=== PATIENT | male | born 1995 | race Two or more races ===

== ENCOUNTER 2024-12-07 15:28 | Emergency (ER) | payer OTHER ==
[~2024-12-07] VITALS: Ht 165.1 cm; Wt 57.6 kg
[2024-12-07] MEDS ORDERED: ONDANSETRON HCL 2 MG/ML VIAL ONE (17:22)
[2024-12-07] MEDS ORDERED: FAMOTIDINE/PF 20 MG/2 ML VIAL ONE (17:23)
[2024-12-07] MEDS ORDERED: 0.9 % SODIUM CHLORIDE 1,000 ML IV ONE (17:30)
[2024-12-07] MEDS ORDERED: ONDANSETRON HCL 2 MG/ML VIAL IV ONE (17:30)
[2024-12-07] MEDS ORDERED: FAMOtidine 10 MG/ML (4ML VIAL) IV ONE (17:30)
[2024-12-07 18:44] LABS: BASO % 0.1 % (0.1-1.2); EOS # 0.00 (0.04-0.54); EOS % 0.0 % (0.7-7.0); LYMPH # 0.55 (1.18-3.74); LYMPH % 4.0 % (19.3-53.1); MEAN PLATELET VOLUME 10.40 fl (9.4-12.4); MONO # 0.50 (0.24-0.82); MONO % 3.6 % (4.7-12.5); NEUT # 12.81 (1.56-6.13); NEUT % 92.2 % (34.0-71.1); RED CELL DISTRIBUTION WIDTH 13.4 % (11.6-14.4)
[2024-12-07 19:20] LABS: ALT/SGPT 50.0 U/L (12-78); AST/SGOT 40.0 U/L (15-37); BILIRUBIN TOTAL 1.78 mg/dL (0.3-1.2); BUN CREA RATIO 17.0 (7.0-25.0); CREATININE SERUM 1.01 mg/dL (0.70-1.30); GFR 87.96; GLOBULINA 4.0 G/DL (2.4-3.5); GLUCOSE FASTING 119.0 mg/dL (65-100); OSMOLALITY SERUM 290.0 MOSM/KG (275-295)
[2024-12-07 19:25] LABS: COVID-19 AG NEGATIVE (NEGATIVE)
[2024-12-07] MEDS ORDERED: ZOFRAN8 MG PO (20:08)
[2024-12-07] MEDS ORDERED: PEPCID AC20 MG PO (20:08)
[2024-12-07] MEDS ORDERED: PROBIOTIC1 EAC2 PO (20:08)
[2024-12-07] MEDS ORDERED: CIPRO500 MG PO (20:08)
== END 2024-12-07 20:19 | disposition home or self-care (01) ==
LOC: ER 15:28
PROVIDERS: General Practice
DX: R11.2 Nausea with vomiting, unspecified (principal); R11.10 Vomiting, unspecified; Z20.822 Contact with and (suspected) exposure to COVID-19; Z88.6 Allergy status to analgesic agent